=== PATIENT | male | born 1995 | race Hispanic/Latino ===

== ENCOUNTER 2019-01-19 11:34 | Emergency (ER) | payer BC | END 2019-01-19 12:34 | disposition home or self-care (01) | LOC: SCSER 11:34 | DX: L03.213 Periorbital cellulitis (principal); H10.9 Unspecified conjunctivitis; E11.65 Type 2 diabetes mellitus with hyperglycemia; Z79.4 Long term (current) use of insulin | CPT/HCPCS: 36416; 99283 ==

== ENCOUNTER 2019-02-28 17:38 | Emergency (ER) | payer BC | END 2019-02-28 18:02 | disposition home or self-care (01) | LOC: SCSER 17:38 | DX: J06.9 Acute upper respiratory infection, unspecified (principal); E11.9 Type 2 diabetes mellitus without complications | CPT/HCPCS: 99281 ==